=== PATIENT | male | born 1955 | race Caucasian/White ===

== ENCOUNTER 2016-07-06 07:08 | Inpatient (IN) ==
[2016-07-06 07:27] LABS: MANUAL DIFF NEEDED? NO
[2016-07-06 07:32] LABS: BASO% 0.2 % (0.0-0.8); EOS# 0.14 X1000 (0.0-0.7); EOS% 1.1 % (0.0-10.0); HEMATOCRIT 48.1 % (42.0-52.0); HEMOGLOBIN 15.9 g/dL (14.0-18.0); IMM GRAN# 0.04 X1000 (0.0-0.04); IMM GRAN% 0.3 % (0.0-0.5); LYMPH# 1.35 X1000 (1.2-3.4); LYMPH% 10.8 % (20.5-51.1); MCH 28.7 PG (27-31); MCHC 33.1 g/dL (33-37); MCV 86.8 FL (81-99); MONO# 0.98 X1000 (0.11-0.59); MONO% 7.8 % (1.7-9.3); MPV 9.1 FL (7.4-10.4); NEUT% 79.8 % (42.2-75.2); PLT 271 X1000 (130-400); RBC 5.54 XMIL (4.7-6.1)
--- NOTE | 2016-07-06 07:39 | EKG Report ---
Test Performed on : 07/06/2016 07:11:16 AM Test Reason : Epigastric pain Blood Pressure : / mmHG Vent. Rate : 083 BPM Atrial Rate : 083 BPM P-R Int : 156 ms QRS Dur : 088 ms QT Int : 368 ms P-R-T Axes : 005 003 021 degrees QTc Int : 432 ms Normal sinus rhythm. Normal ECG No previous ECGs available Confirmed by Sharla PINEDA, Daniel De Jesus ([id number]) on 07/06/2016 5:24:05 PM
[2016-07-06] MEDS ORDERED: NS 1,000 ML IV ONE (07:41)
[2016-07-06] MEDS ORDERED: ZOFRAN IV ONE (07:41)
[2016-07-06] MEDS ORDERED: DILAUDID IV ONE ×2 (07:41→09:22)
[2016-07-06] MEDS ORDERED: ZOFRAN ONE ×2 (07:42→11:49)
[2016-07-06] MEDS ORDERED: NS 1,000 ML ONE (07:42)
[2016-07-06] MEDS ORDERED: DILAUDID ONE ×2 (07:42→09:29)
[2016-07-06] MEDS ORDERED: ZOSYN 3.375 GM/NS 50 ML IV ONE (07:44)
--- NOTE | 2016-07-06 07:48 | PROVIDER DOCUMENTATION ---
HPI-Abdominal Pain/GI Problem - General Chief Complaint: Abdominal Pain Stated Complaint: ABD PAIN Time Seen by Provider: 07/06/16 07:18 Allergies/Adverse Reactions: Patient Allergies Allergy/AdvReac Type Severity Reaction Status Date / Time No Known Allergies Allergy Verified 07/06/16 07:38 Home Medications: Home Medication List Medication Instructions Recorded Confirmed Last Taken Type Amlodipine [Norvasc] 10 mg PO DAILY 07/06/16 07/06/16 07/05/16 07:00 History 10 MG Aspirin [Aspirin EC] 81 mg PO DAILY 07/06/16 07/06/16 07/05/16 07:00 History 81 MG Bisoprolol Fumarate/Hctz 1 each PO DAILY 07/06/16 07/06/16 07/05/16 07:00 History [Bisoprolol-Hctz 5-6.25 mg Tab] 1 EACH Canagliflozin [Invokana] 300 mg PO DAILY 07/06/16 07/06/16 07/05/16 07:00 History 300 MG Gabapentin [Neurontin] 200 mg PO QHS 07/06/16 07/06/16 07/05/16 20:00 History 200 MG Glyburide/Metformin HCl 1 each PO DAILY 07/06/16 07/06/16 07/05/16 07:00 History [Glyburide-Metformin 5-500 mg] 1 EACH Losartan/Hydrochlorothiazide 1 each PO DAILY 07/06/16 07/06/16 07/05/16 07:00 History [Losartan-Hctz 100-25 mg Tab] 1 EACH Naproxen 500 mg PO BID 07/06/16 07/06/16 07/04/16 20:00 History 500 MG Simvastatin 20 mg PO HS 07/06/16 07/06/16 07/05/16 20:00 History 20 MG Tamsulosin [Flomax] 0.4 mg PO DAILY 07/06/16 07/06/16 07/05/16 07:00 History 0.4 MG - History of Present Illness-ABD Nature of Presenting Problems: Reports progressively worsening of epigastric pain since one week ago. H/o remote appy and DMII. Denies F/C/N/V/D. Abdominal Pain Onset Location: reports: epigastric Pain Radiation: reports: no radiation Quality of Pain: reports: sharp Severity in ED: reports: moderate, severe Onset/Duration: reports: 1 week ago Timing: reports: still present, constant, getting worse Activities at Onset: reports: light activity Exposure to sick contacts?: No Modifying Factors: improves with: lying down, rest. worse with: movement Associated Symptoms: reports: fatigue, nausea, weakness. denies: chest pain, constipation, cough, shortness of breath, vomiting Last BM: unsure Dark Stools Present?: reports: none noticed Rectal Bleeding: reports: none Rectal Pain: reports: none Bruising or Bleeding Gums?: No Similar Symptoms Previously?: No Review of Systems - Adult - REVIEW OF SYSTEMS - ADULT Constitutional: reports: see HPI. denies: fever, fatique Eyes: reports: no symptoms reported Ears, Nose, Mouth & Throat: reports: no symptoms reported Cardiovascular: reports: no symptoms reported Respiratory: reports: no symptoms reported Gastrointestinal: reports: see HPI, abdominal pain, nausea. denies: constipation, vomiting Genitourinary: reports: no symptoms reported Musculoskeletal: reports: no symptoms reported Integumentary: reports: no symptoms reported Neurological: reports: no symptoms reported Psychiatric: reports: no symptoms reported All Other Systems: Reviewed and Negative Past History - Adult - PAST MEDICAL HISTORY-ADULT Review of Records: reports: Old Records Reviewed, Nursing Assessment Review, Medications Reviewed Physical Exam-General - PHYSICAL EXAM-ADULT Initial Vital Signs Reviewed: Yes - CONSTITUTIONAL General Appearance: alert, mild distress - EYES Eyes: PERRL/EOMI, pink conjunctivae - HEAD, EARS, NOSE, MOUTH & THROAT HENMT: normocephalic/atraumatic - NECK Neck: non-tender, full range of motion - RESPIRATORY Respiratory: chest non-tender, lungs clear, normal breath sounds, no pleuratic chest pain, no respiratory distress, no accessory muscle use - CARDIOVASCULAR Cardiovascular: normal peripheral pulses, regular rate, rhythm, no edema, no gallop, no JVD, no murmur - GASTROINTESTINAL (ABDOMEN) Abdominal Exam: no organomegaly, distended, guarding, rebound, tenderness - MUSCULOSKELETAL Back Exam: normal inspection, no CVA tenderness Extremity: normal range of motion, non-tender, normal gait, normal inspection - SKIN Integumentary: normal color, normal turgor, warm/dry - NEUROLOGIC Neurologic: no motor/sensory deficits - PSYCHIATRIC Psych/Mental Status: normal mood/affect, normal thought content, normal thought process, oriented x 3 Progress - PLAN OF CARE/RESULTS Progress/Plan/Lab Results: Laboratory Results - last 24 hr 07/06/16 07:22 WBC 12.52 H RBC 5.54 Hgb 15.9 Hct 48.1 MCV 86.8 MCH 28.7 MCHC 33.1 RDW Std Deviation 14.2 Plt Count 271 MPV 9.1 Immature Gran % (Auto) 0.3 Neut % (Auto) 79.8 H Lymph % (Auto) 10.8 L Kimble % (Auto) 7.8 Eos % (Auto) 1.1 Baso % (Auto) 0.2 Immature Gran # (Auto) 0.04 Neut # (Auto) 9.98 H Lymph # (Auto) 1.35 Kimble # (Auto) 0.98 H Eos # (Auto) 0.14 Baso # (Auto) 0.03 Orders Category Date Time Status Saline Loc DIRECTED Care 07/06/16 07:18 Active NPO Diet 07/06/16 07:18 Active FLAT/UPRIGHT ABD/1 VIEW CHEST [RAD] Stat Exams 07/06/16 07:18 Taken AMYLASE [CHEM] Stat Lab 07/06/16 07:22 Received CBC WITH ELECTRONIC DIFF [HEME] Stat Lab 07/06/16 07:22 Completed COMPREHENSIVE METABOLIC PANEL [CHEM] Stat Lab 07/06/16 07:22 Received LIPASE [CHEM] Stat Lab 07/06/16 07:22 Received TROPONIN T Stat Lab 07/06/16 07:22 Received URINALYSIS W/POSS RFLX CULT [URINALYSIS] Stat Lab 07/06/16 07:21 Ordered 0.9% Sodium Chloride Inj [Ns] 1,000 ml Med 07/06/16 07:41 Active IV 999 mls/hr Hydromorphone [Dilaudid] Med 07/06/16 07:41 Discontinued 1 mg IV NOW ONE Ondansetron [Zofran] Med 07/06/16 07:41 Discontinued 4 mg IV NOW ONE Piperacil/Tazobact 3.375 gm/Ns [Zosyn 3.375 gm/Ns] 50 Med 07/06/16 07:44 Active ml IV NOW EKG [EKG] Stat Ther 07/06/16 07:18 Draft Vital Signs Temp Pulse Resp BP Pulse Ox 07/06/16 07:10 98.6 F 89 22 157/117 96 No Known Allergies Allergy (Verified 07/06/16 07:38) Amlodipine [Norvasc] 10 mg PO DAILY 07/06/16 Aspirin [Aspirin EC] 81 mg PO DAILY 07/06/16 Bisoprolol Fumarate/Hctz [Bisoprolol-Hctz 5-6.25 mg Tab] 1 each PO DAILY Canagliflozin [Invokana] 300 mg PO DAILY 07/06/16 Gabapentin [Neurontin] 200 mg PO QHS 07/06/16 Glyburide/Metformin HCl [Glyburide-Metformin 5-500 mg] 1 each PO DAILY 07/06/16 Losartan/Hydrochlorothiazide [Losartan-Hctz 100-25 mg Tab] 1 each PO DAILY 07/06 Naproxen 500 mg PO BID 07/06/16 Simvastatin 20 mg PO HS 07/06/16 Tamsulosin [Flomax] 0.4 mg PO DAILY 07/06/16 Dietary Diet NPO Start TueJul 06 717 Laboratory 07/06/16 07:22 WBC 12.52 H RBC 5.54 Hgb 15.9 Hct 48.1 MCV 86.8 MCH 28.7 MCHC 33.1 RDW Std Deviation 14.2 Plt Count 271 MPV 9.1 Immature Gran % (Auto) 0.3 Neut % (Auto) 79.8 H Lymph % (Auto) 10.8 L Kimble % (Auto) 7.8 Eos % (Auto) 1.1 Baso % (Auto) 0.2 Immature Gran # (Auto) 0.04 Neut # (Auto) 9.98 H Lymph # (Auto) 1.35 Kimble # (Auto) 0.98 H Eos # (Auto) 0.14 Baso # (Auto) 0.03 - XRAY 1 XRAY Study: Abdomen Impression: Abnormal XRAY Interpretation: Free air under R diaphgram - CONSULTS/PCP/HOSPITALIST Notification Time Discussed: 07:48 Reason/Comments: Called Dr. Roach for perforated viscus Departure - Departure Time of Disposition Order: 07:49 DIAGNOSIS: Perforated abdominal viscus Disposition: ADMITTED INPATIENT 09 Certified Medical Emergency: Emergent Condition: Stable Referrals: Marvel Mcleod MD [Primary Care Provider] - - Critical Care Note Total Time (mins): 30 Critical Care Statement: This patient required my direct personal management to treat or rule out processes, the absence of which, could potentiallly result in sudden, clinically significant life or limb threatening deterioration.
[2016-07-06 07:51] LABS: AGAP 14; ALBUMIN 4.1 g/dL (3.5-5.0); ALKALINE PHOSPHATASE 59 U/L (32-122); AMYLASE 50 U/L (20-200); BUN 17 mg/dL (8-22); CALCIUM 9.9 mg/dL (8.8-10.2); CHLORIDE 101 mmol/L (98-107); COSMO 288; GOT 13 U/L (10-34); GPT 19 U/L (10-44); LIPASE 51 U/L (13-60); POTASSIUM 4.2 mmol/L (3.5-5.1); SODIUM 141 mmol/L (136-145); TCO2 26 mmol/L (25-35); TOTAL BILIRUBIN 0.45 mg/dL (0.20-1.00)
--- NOTE | 2016-07-06 08:15 | Diag Imaging Result Document ---
PROCEDURE NAME: FLAT/UPRIGHT ABD/1 VIEW CHEST - 07/06/2016 PLAIN RADIOGRAPH OF THE CHEST AND ABDOMEN, 4 VIEWS.: COMPARISON: None available. FINDINGS: There are nonspecific bowel gas and stool patterns. There is patchy small bowel gas, and there is a fairly large amount of stool in the colon suggesting constipation. Air density underlies the right hemidiaphragm worrisome for pneumoperitoneum. Correlation with a CT of the abdomen and pelvis, preferably with IV contrast, is recommended. There is elevation of both hemidiaphragms and inspiration is suboptimal. There is suggestion of mild bibasilar atelectasis. Cardiac silhouette is grossly unremarkable. IMPRESSION: 1. Nonspecific bowel gas patterns with findings worrisome for pneumoperitoneum underlying the right hemidiaphragm. 2. Suggestion of constipation. 3. Suggestion of bibasilar atelectasis. This critical result was reported to Dr. Ovalles in the emergency department at 0745 hours. MTDD
[2016-07-06 08:23] LABS: URINE CULTURE NEEDED? NO; URINE MICRO REVIEW NEEDED? NO; URINE SOURCE CLEAN CATCH
[2016-07-06 08:32] LABS: BILIRUBIN URINE NEGATIVE (NEGATIVE); BLOOD URINE NEGATIVE (NEGATIVE); COLOR YELLOW; GLUCOSE URINE >1000 mg/dL (NEGATIVE); LEUKOCYTES URINE NEGATIVE (NEGATIVE); NITRITE URINE NEGATIVE (NEGATIVE); PH URINE 5.5; PROTEIN URINE NEGATIVE (NEGATIVE); SP GRAVITY URINE 1.033; TURBIDITY URINE CLEAR (CLEAR); UROBILINOGEN URINE NORMAL (NORMAL)
[2016-07-06 08:34] LABS: UR EPITHELIAL CELLS <10 /HPF (<10); URINE BACTERIA NEGATIVE /HPF; URINE RBC <10 /HPF (<10); URINE WBC <10 /HPF (<10)
--- NOTE | 2016-07-06 09:11 | ED EKG INTERP ---
EKG Interpretation - EKG Time of EKG reading by physician:: 07:11 EKG Read and Signed by:: Contreras Ovalles EKG Interpretation (*Must complete 3 of following elements*): Normal Rate: 83 Rhythm: nsr [place]: normal QRS: normal [place] Interval: normal Attestation - Scribe Verification/Attestation Scribe:: Carter Teran Acting as Scribe for:: Contreras Ovalles Scribe documention review:: This chart was documented by a scribe and accurately reflects the service the provider performed and the decisions made by the provider. Physician Attestation - Physician Attestation I, the provider, attest to the following statement:: Contreras Ovalles Physician documentation Attestation:: This documentation recorded by the scribe accurately reflects the service I personally performed and the decisions made by me.
[2016-07-06] MEDS ORDERED: ZOFRAN IV PRN (09:18)
[2016-07-06] MEDS ORDERED: LABETALOL IV PRN (09:26)
[2016-07-06] MEDS ORDERED: FENTANYL ONE (09:41)
[2016-07-06] MEDS ORDERED: SODIUM CHLORIDE 0.9% 10 ML ONE (10:43)
[2016-07-06] MEDS ORDERED: MARCAINE 0.25% PF ONE (10:44)
[2016-07-06] MEDS ORDERED: EXPAREL 1.3% ONE (10:44)
[2016-07-06] MEDS ORDERED: NS 1,000 ML IV SCH (11:00)
[2016-07-06] MEDS ORDERED: DIPRIVAN 1% ONE (11:24)
--- NOTE | 2016-07-06 11:42 | HISTORY AND PHYSICAL ---
CHIEF COMPLAINT: Severe epigastric pain. HISTORY: This is an obese gentleman, who reports a sudden onset of pain about 4 o'clock this morning. He reports having pain for about a week with his right hip. He has been taking NSAIDs, which seemed to cause some epigastric discomfort, but he stopped the NSAID despite that he had the sudden onset of pain at 4 o'clock this morning. He came to the ER. X-ray showed free intra- abdominal air. His only other medical problems include diabetes for which he takes non insulin medications. He has some hypertension. He has some lower urinary tract obstructive symptoms. He has COPD. MEDICATIONS: 1. Norvasc 10 mg daily. 2. Aspirin 81 mg daily. 3. Bisoprolol/hydrochlorothiazide 5/6.25 one daily. 4. Invokana 300 mg daily. 5. Neurontin 200 mg at bedtime. 6. Glyburide/metformin 5/500 one daily. 7. Losartan/hydrochlorothiazide 100/25 mg one daily. 8. Naproxen 500 mg b.i.d. 9. Simvastatin 20 mg at bedtime. 10. Flomax 0.4 mg daily. ALLERGIES: He has no known drug allergies. PAST SURGICAL HISTORY: Previous surgery includes an appendectomy. REVIEW OF SYSTEMS: Pertinent for the epigastric pain, the right hip pain. He denies any shortness of breath or fever. Denies chest pain. He does have a history of some COPD. Other subsystems are negative. PHYSICAL EXAMINATION: GENERAL: He is awake, alert and oriented. He is somewhat obese. NECK: No cervical adenopathy. LUNGS: Bilateral breath sounds. HEART: Regular rate and rhythm. ABDOMEN: He is diffusely tender, especially in the epigastrium. EXTREMITIES: Femoral pulses are present. No peripheral edema. DIAGNOSTICS/LABS: White count is 12,500. ASSESSMENT: Perforated viscus, probable perforated ulcer. PLAN: The plan is exploratory laparotomy. I have discussed this with him and the plan to patch his ulcer. If something else is discovered, we will deal with that as well. I answered the questions from he and his family.
[2016-07-06] MEDS ORDERED: ZEMURON ONE (11:49)
[2016-07-06] MEDS ORDERED: ANESTHESIA PB SET 88 IN 5742 ONE (11:49)
[2016-07-06] MEDS ORDERED: XYLOCAINE-MPF 2% ONE (11:49)
[2016-07-06] MEDS ORDERED: NEO-SYNEPHRINE ONE (11:49)
[2016-07-06] MEDS ORDERED: NEOSTIGMINE ONE (11:49)
[2016-07-06] MEDS ORDERED: EXTENSION SET 32 IN 4522 ONE (11:49)
[2016-07-06] MEDS ORDERED: ROBINUL ONE (11:49)
[2016-07-06] MEDS ORDERED: LR 3,000 ML ONE (11:49)
[2016-07-06] MEDS ORDERED: QUELICIN (DOSE) ONE (11:49)
--- NOTE | 2016-07-06 12:01 | HISTORY AND PHYSICAL ---
CHIEF COMPLAINT: Abdominal pain. HISTORY OF PRESENT ILLNESS: The patient is a 60-year-old white male followed in my medical practice, presents to the emergency room with a 1-week history of pain, epigastrium. Pain became much more severe this morning. He had noted about a week ago he began having gnawing pain in his epigastrium and he stopped Naprosyn that he had been on for some right trochanteric bursitis with ITB syndrome. The patient then had abrupt worsening of pain in the last 6-8 hours. Very hard to take a deep breath. Symptoms radiating up to the right shoulder. MEDICATIONS: Prior to admission are Norvasc 10 mg p.o. daily, aspirin 81 mg p.o. daily, Ziac 5 mg p.o. daily, Invokana 300 mg p.o. daily, Neurontin 200 mg p.o. at bedtime, Glucovance 5/500 two p.o. b.i.d. (it is listed wrong on his admission med list), Hyzaar 100/25 one p.o. q.a.m., Naprosyn he has been off the last week having taken that at 500 mg b.i.d. for about 3 weeks prior to that, Zocor 20 mg p.o. at bedtime, Flomax 0.4 mg p.o. daily, Trulicity 1.5 mg subcutaneously 1 time per week. ALLERGIES: NKDA. PAST MEDICAL HISTORY: 1. Type 2 diabetes mellitus, diagnosed in 1995. 2. Hypertension. 3. Hypercholesterolemia. 4. Obstructive sleep apnea on CPAP. 5. Diabetic neuropathy, diagnosed 2009. 6. Obesity. PAST SURGICAL HISTORY: Appendectomy in 1967. IMMUNIZATIONS: Pneumovax 23 given January 2007. Zostavax given January 2014. FAMILY HISTORY: Notable for father with hypertension. Diabetes mellitus in his father. IN in his father and brother at age 68. No strokes in the family. Mother with renal cell carcinoma. No cancer otherwise in the family. SOCIAL HISTORY: The patient lives in [place]. He is and has 2 sons. Retired from [employer] He umpires baseball. Quit smoking in 1991 but has a 25 pack year history of smoking. No alcohol usage. REVIEW OF SYSTEMS: Positive for right trochanteric bursitis with ITB syndrome bothering him when he has been umpiring baseball over the last few weeks but improving. Last A1c January 2016 good at 7.0 and he maintains good control of his blood sugar and adheres to an ADA diet otherwise. Review of systems negative except as above. Last colonoscopy August 2008, due in 2019. PHYSICAL EXAMINATION: VITAL SIGNS: Temperature 98.6 degrees, pulse 89, respirations 22, blood pressure 157/117, weight 225, 5 feet 7 inches tall. GENERAL: Obese white male, in mild distress with abdominal pain. SKIN: Warm and dry. Redness to the face noted. HEENT: TRISHA. EOMI. Sclerae anicteric. OP no redness. Tongue in the midline. NECK: No LA, TMG, JVD, or bruits. CV: RRR without murmur. LUNGS: Lungs clear except diminished breath sounds at the lung bases. ABDOMEN: Mildly distended. Hypoactive bowel sounds. Tender in the epigastrium and right upper quadrant area. Hurts to take deep breaths. BACK: Cannot rule out CVA tenderness on the right. He has some mild rebound and some guarding. GENITOURINARY/RECTAL: Deferred. EXTREMITIES: No calf tenderness, cords, or edema. NEUROLOGIC: Cranial nerves are intact without focal deficits. LAB DATA: Shows urinalysis greater than 1000 glucose, on Invokana, otherwise negative. Sodium 141, potassium 4.2, chloride 101, CO2 26, BUN 17, creatinine 1, glucose 194, calcium 9.9, total bilirubin 0.45, AST 13, ALT 19, alkaline phosphatase 59. Troponin less than 0.01. Total protein 7.0, albumin 4.1, amylase 50, lipase 51. White count 12.5, hemoglobin 15.9, hematocrit 48, MCV 86.8, platelets 271,000, neutrophils 80, lymphocytes 11. Abdominal x-ray reveals right pneumoperitoneum, constipation, bibasilar atelectasis. ASSESSMENT: 1. Probable perforated viscus, likely peptic ulcer disease. 2. Obesity. 3. Hypertension. 4. Type 2 diabetes mellitus. 5. Hypercholesterolemia. 6. Obstructive sleep apnea on CPAP. 7. Diabetic neuropathy. 8. History of right trochanteric bursitis with iliotibial band syndrome. PLAN: Will admit the patient to the ICU. Dilaudid has been given for pain and he has been started on Zosyn. Dr. Roach has been consulted. We will start him on IV Protonix, monitor Accu- Cheks, and give him high-dose SSI as required. Likely will need surgical treatment of the difficulty.
--- NOTE | 2016-07-06 12:53 | OPERATIVE NOTE ---
PROCEDURE DATE: 07/06/2016 PROCEDURE PERFORMED: Exploratory laparotomy with closure of perforated duodenal ulcer with a Juanjo patch. SURGEON: Akbar Roach MD SUPERVISOR ELECTRIC: Telma PREOPERATIVE DIAGNOSIS: Perforated viscus. POSTOPERATIVE DIAGNOSIS: Perforated duodenal ulcer. INDICATIONS: A 60-year-old, who presented to emergency department this morning with free intra- abdominal air. DESCRIPTION OF PROCEDURE: Satisfactory general endotracheal anesthesia achieved, the abdomen was prepped and draped in a sterile fashion. A midline incision was made from the xiphoid down to the umbilicus. We carried our incision through the subcutaneous tissue and through the midline fascia. We opened the abdominal cavity to extend to the skin incision. Upon entering the abdominal cavity, we looked at the duodenum and there was a hole in the first portion of the duodenum anteriorly with bile leaking out. There was contaminated fluid in the subhepatic space in the right gutter. We then briefly explored the abdominal cavity, there was stool noted within the colon, no masses were palpated otherwise. No other obvious abnormalities were identified. We then irrigated all 4 quadrants and aspirated to get rid of the contaminated peritoneal fluid. After doing that, we then placed two 2-0 silk stitches across the hole in the duodenum and actually proceeded to close the duodenal ulcer hole primarily. We left the limbs of the stitch and laid a limb or tongue of omentum across the anterior duodenum and used the limb of the stitches to secure that over the anterior duodenum at the site of the ulcer. This thereby established a Juanjo patch. After doing that there was no evidence of bleeding from the omentum. The effluent was clear. We then proceeded to close the peritoneum with 2-0 chromic. We closed the fascia with running #2 Prolene. We irrigated out the subcutaneous tissue and closed the skin with angelito. A sterile island dressing was applied. He tolerated it well. Dr. Helm then was prepared to do a TAP abdominal wall block.
[2016-07-06] MEDS: MORPHINE ONE ×2 (13:13→15:08)
[2016-07-06] MEDS: HUMULIN R SUBQ SCH ×2 (19:21→22:35)
[2016-07-06] MEDS: OFIRMEV 1000 MG/ISOTONIC SOLN 100 ML IV SCH ×2 (19:21→22:27)
[2016-07-06] MEDS: PROTONIX IV SCH ×2 (19:49→22:26)
[2016-07-06] MEDS: DILAUDID IV PRN (20:47)
[2016-07-06] MEDS: PERIDEX MT SCH (22:25)
[2016-07-06] MEDS: SODIUM CHLORIDE 0.9% INJ SCH (22:26)
[2016-07-06] MEDS: ZOSYN 3.375 GM/NS 50 ML IV SCH (22:27)
[2016-07-06] MEDS: VASOTEC IV SCH (23:13)
[2016-07-07] MEDS: OFIRMEV 1000 MG/ISOTONIC SOLN 100 ML IV SCH ×5 (04:24→23:34)
[2016-07-07] MEDS: VASOTEC IV SCH ×6 (04:24→21:05)
[2016-07-07] MEDS: DILAUDID IV PRN ×5 (04:28→22:08)
[2016-07-07] MEDS: ZOSYN 3.375 GM/NS 50 ML IV SCH ×5 (04:30→17:06)
[2016-07-07 06:14] LABS: MANUAL DIFF NEEDED? NO
[2016-07-07 06:18] LABS: BASO% 0.3 % (0.0-0.8); EOS# 0.06 X1000 (0.0-0.7); EOS% 0.5 % (0.0-10.0); HEMATOCRIT 41.9 % (42.0-52.0); IMM GRAN# 0.03 X1000 (0.0-0.04); IMM GRAN% 0.3 % (0.0-0.5); LYMPH# 1.18 X1000 (1.2-3.4); LYMPH% 10.2 % (20.5-51.1); MCH 29.5 PG (27-31); MCHC 33.4 g/dL (33-37); MCV 88.4 FL (81-99); MONO# 1.34 X1000 (0.11-0.59); MONO% 11.6 % (1.7-9.3); MPV 9.7 FL (7.4-10.4); NEUT% 77.1 % (42.2-75.2); PLT 244 X1000 (130-400); RBC 4.74 XMIL (4.7-6.1)
[2016-07-07 06:48] LABS: AGAP 17; ALBUMIN 3.4 g/dL (3.5-5.0); ALKALINE PHOSPHATASE 42 U/L (32-122); BUN 16 mg/dL (8-22); CALCIUM 8.4 mg/dL (8.8-10.2); CHLORIDE 104 mmol/L (98-107); COSMO 283; GOT 13 U/L (10-34); GPT 19 U/L (10-44); POTASSIUM 4.1 mmol/L (3.5-5.1); SODIUM 141 mmol/L (136-145); TCO2 20 mmol/L (25-35); TOTAL BILIRUBIN 0.82 mg/dL (0.20-1.00); TOTAL PROTEIN 5.9 g/dL (6.3-8.3)
[2016-07-07] MEDS: PERIDEX MT SCH ×2 (08:08→21:05)
[2016-07-07] MEDS: FLOMAX PO SCH (09:00)
[2016-07-07] MEDS: PROTONIX IV SCH ×2 (09:12→21:05)
[2016-07-07] MEDS: HUMULIN R SUBQ SCH ×4 (12:50→22:43)
[2016-07-07] MEDS: NS 1,000 ML IV SCH ×3 (13:15→22:43)
[2016-07-07] MEDS ORDERED: D50W SYRINGE IV PRN (20:38)
[2016-07-07] MEDS: SODIUM CHLORIDE 0.9% INJ SCH (21:05)
[2016-07-08] MEDS: DILAUDID IV PRN ×3 (03:51→20:37)
[2016-07-08] MEDS: VASOTEC IV SCH ×4 (03:57→22:35)
[2016-07-08] MEDS: OFIRMEV 1000 MG/ISOTONIC SOLN 100 ML IV SCH ×4 (05:03→22:35)
[2016-07-08] MEDS: ZOSYN 3.375 GM/NS 50 ML IV SCH ×5 (05:39→22:36)
[2016-07-08] MEDS: HUMULIN R SUBQ SCH ×4 (06:33→20:41)
[2016-07-08] MEDS: PERIDEX MT SCH ×2 (09:13→20:41)
[2016-07-08] MEDS: SODIUM CHLORIDE 0.9% INJ SCH ×2 (09:14→20:41)
[2016-07-08] MEDS: PROTONIX IV SCH ×2 (09:14→20:41)
[2016-07-08] MEDS: FLOMAX PO SCH (09:14)
[2016-07-08] MEDS ORDERED: NS 1,000 ML IV SCH (09:26)
[2016-07-08] MEDS ORDERED: ULTRAM PO PRN (09:26)
[2016-07-09] MEDS: VASOTEC IV SCH ×2 (04:00→09:14)
[2016-07-09] MEDS: OFIRMEV 1000 MG/ISOTONIC SOLN 100 ML IV SCH (05:32)
[2016-07-09] MEDS: HUMULIN R SUBQ SCH (06:07)
[2016-07-09] MEDS: ZOSYN 3.375 GM/NS 50 ML IV SCH (06:25)
[2016-07-09 08:32] VITALS: BP 125/79
[2016-07-09] MEDS: DILAUDID IV PRN (09:03)
[2016-07-09] MEDS: PERIDEX MT SCH (09:13)
[2016-07-09] MEDS: FLOMAX PO SCH (09:14)
[2016-07-09] MEDS: SODIUM CHLORIDE 0.9% INJ SCH (09:14)
[2016-07-09] MEDS: PROTONIX IV SCH (09:15)
--- NOTE | 2016-07-14 12:37 | DISCHARGE SUMMARY ---
ADMISSION DATE: 07/06/2016 DISCHARGE DATE: 07/09/2016 PRIMARY DISCHARGE DIAGNOSIS: Perforated duodenal ulcer. OTHER DIAGNOSES: Include: 1. Degenerative joint disease. 2. Chronic obstructive pulmonary disease. PRIMARY PROCEDURE: Exploratory laparotomy and closure of perforated duodenal ulcer with a Juanjo patch. HISTORY OF PRESENT ILLNESS AND HOSPITAL COURSE: Mr. Quinones is 60 years old and presented with abdominal pain and free intraperitoneal air. He was taken to the operating room on 07/06/2016 for the above noted procedure. Postoperatively he did generally well. His [place] was removed on the first postoperative day. We started him on clear liquids on the second postoperative day. We advanced his diet subsequently. On the 07/09/2016, postop day 3, he was tolerating solid food, his wound was fine, and it was felt that he could be discharged home. FOLLOW UP: He will return to the office in 1 week. DISCHARGE MEDICATIONS: We will send him home on omeprazole to treat his peptic ulcer disease. He knows not to take any more NSAID drugs.
== END 2016-07-09 15:45 | disposition home or self-care (01) | DRG 330 ==
LOC: ED 07:08 → OPS 09:40 → 4N 16:20
PROVIDERS: ADMIT Family Medicine; ATTEND Surgery
PROC: 0DU907Z Supplement Duodenum with Autologous Tissue Substitute, Open Approach (ICD-10-PCS; principal; 2016-07-06 09:53)
DX: K26.5 Chronic or unspecified duodenal ulcer with perforation (principal); R18.8 Other ascites; E11.40 Type 2 diabetes mellitus with diabetic neuropathy, unspecified; J44.9 Chronic obstructive pulmonary disease, unspecified; I10 Essential (primary) hypertension; E11.9 Type 2 diabetes mellitus without complications; E78.00 Pure hypercholesterolemia, unspecified; G47.33 Obstructive sleep apnea (adult) (pediatric); M19.90 Unspecified osteoarthritis, unspecified site; E66.9 Obesity, unspecified; Z79.899 Other long term (current) drug therapy; Z79.82 Long term (current) use of aspirin; Z79.84 Long term (current) use of oral hypoglycemic drugs; Z87.891 Personal history of nicotine dependence; Z68.35 Body mass index [BMI] 35.0-35.9, adult; Z82.49 Family history of ischemic heart disease and other diseases of the circulatory system; Z83.3 Family history of diabetes mellitus; Z80.51 Family history of malignant neoplasm of kidney
CPT/HCPCS: 51702; 74022; 80053; 81001; 82150; 82948; 83690; 84484; 85025; 93005; 94761; 96365; 96375; 96376; C9113; C9290; J0131; J0330; J1170; J2270; J2370; J2405; J2543; J3010; J7030; J7120; J2710; S0020; S0164